=== PATIENT | female | born 1990 | race Caucasian/White ===

== ENCOUNTER 2021-10-26 12:51 | Emergency (ER) | payer OTHER, SELFPAY | END 2021-10-26 12:53 | disposition left against medical advice (07) | LOC: EXPCOLL 12:56 | PROVIDERS: Emergency Provider Nurse Practitioner; PCP Internal Medicine | DX: Z53.21 Procedure and treatment not carried out due to patient leaving prior to being seen by health care provider (principal) | CPT/HCPCS: 99199 ==

== ENCOUNTER 2021-10-26 12:59 | Emergency (ER) | payer OTHER, SELFPAY ==
--- NOTE | ~2021-10-26 | XR_ITS ---
XR ankle RT min 3V DATE: 10/26/2021 13:20 INDICATION: Twisted ankle. Lateral ankle pain. TECHNIQUE: 4 views COMPARISON: None FINDINGS: Mild lateral soft tissue swelling. No fracture or dislocation of the ankle or disruption of the ankle mortise is detected. No periosteal reaction or bone destruction. Mild plantar calcaneal en thesopathy. IMPRESSION: Mild lateral soft tissue swelling; no fracture or dislocation Mild plantar calcaneal enthesopathy Reviewed, dictated and finalized at location B.
[2021-10-26 13:10] VITALS: BP 143/92; PULSE 81; RESP 16; TEMP 36.9; O2SAT 100
--- NOTE | 2021-10-26 13:32 | ED.LOWEXIN ---
HPI - Extremity Injury (Lower) General Chief Complaint: Extremity Injury, Lower Stated Complaint: Right Ankle Pain Time Seen by Provider: 10/26/21 13:26 Source: patient Mode of arrival: ambulatory Limitations: no limitations History of Present Illness HPI Narrative: Patient presents today complaining of right ankle injury. She tripped over something in her home yesterday and felt a pop and swelling in her ankle. She denies any pain at this time. She is been applying ice. Reports some tingling in her toes. She has also been wearing an ankle brace. She has been ambulating since the injury. Related Data Home Medications Medication Instructions Recorded Confirmed bupropion HCl 300 mg 24 hr tablet, 1 mg PO BID 10/26/21 10/26/21 extended release norethindrone acetate 1.5 1 tablet PO DAILY 10/26/21 10/26/21 mg-ethinyl estradiol 30 mcg tablet (Microgestin) Allergies Allergy/AdvReac Type Severity Reaction Status Date / Time No Known Allergies Allergy Verified 10/26/21 13:30 Review of Systems Review of Systems: CONSTITUTIONAL: Denies body aches, fever, chills, or sweats. EYES: Denies visual changes, redness, or discharge. ENT: Denies rhinorrhea, congestion, sore throat, or otalgia. CARDIOVASCULAR: Denies chest pain, palpitations, or edema. RESPIRATORY: Denies cough or dyspnea. GASTROINTESTINAL: Denies abdominal pain, nausea, vomiting, or diarrhea. GENITOURINARY: Denies dysuria or hematuria. SKIN: Denies rash, itching, or wounds. MUSCULOSKELETAL: Denies back pain, or myalgia.+ Right ankle injury NEUROLOGIC: Denies headache, numbness, or weakness.+ Tingling to the right toes PSYCH: Denies depression or anxiety. PMFSH Comments At time of signature, I have reviewed and agree with nursing past medical, surgical, social and family history unless otherwise noted. Please see nursing chart for further information. There is no relevant family history pertinent to the presenting complaint Exam Narrative: GENERAL: Well-appearing, well-nourished, and in no acute distress. HEAD: Normocephalic, atraumatic. EYES: EOMI. No redness or drainage. Conjunctivae normal. ENT: Mucous membranes pink and moist. NECK: Normal AROM. CHEST: No respiratory distress. EXTREMITIES: Right ankle: Mild edema to the lateral malleolus and anterior ankle. No tenderness about the ankle or foot. Distal sensation intact. Capillary refill normal. Pedal pulse normal. Full AROM of the ankle and all toes. Patient states she seems to have some difficulty with dorsiflexion of the ankle. SKIN: Warm, dry, no rash. Capillary refill normal. Normal skin turgor. NEURO: No focal deficits. Alert and oriented x3. Gait steady. PSYCH: Normal affect. No signs of depression or anxiety. Course Course Level of Care: Express Care Visit Vital Signs Vital signs: Vital Signs Temperature 98.5 F 10/26/21 13:10 Pulse Rate 81 10/26/21 13:10 Respiratory Rate 16 10/26/21 13:10 Blood Pressure 143/92 H 10/26/21 13:10 Pulse Oximetry 100 10/26/21 13:10 Oxygen Delivery Room Air 10/26/21 13:10 Temperature 98.5 F 10/26/21 13:10 Pulse Rate 81 10/26/21 13:10 Respiratory Rate 16 10/26/21 13:10 Blood Pressure 143/92 H 10/26/21 13:10 Pulse Oximetry 100 10/26/21 13:10 Oxygen Delivery Room Air 10/26/21 13:10 Reviewed. Pt has been instructed to follow up with her PCP regarding her elevated blood pressure today. MDM - Extremity Injury (Lower) Differential Diagnosis Differential diagnosis: Likely ankle sprain and strain and ankle fracture Imaging Data Radiologist's impression: ITS Impressions Ankle X-Ray 10/26/21 13:23 IMPRESSION: Mild lateral soft tissue swelling; no fracture or dislocation Mild plantar calcaneal enthesopathy Critical Care Time Critical Care Time Critical Care Time: No Discharge Plan Discharge Clinical Impression: Right ankle sprain Patient Disposition: Home, Self-Car
== END 2021-10-26 13:40 | disposition home or self-care (01) ==
PROVIDERS: Emergency Provider Nurse Practitioner; PCP Internal Medicine
DX: S93.401A Sprain of unspecified ligament of right ankle, initial encounter (principal); W18.40XA Slipping, tripping and stumbling without falling, unspecified, initial encounter
CPT/HCPCS: 73610; 99203; G0463